=== PATIENT | male | born 1940 | race Caucasian/White ===

== ENCOUNTER 2019-05-20 14:42 | Outpatient (CLI) | payer MEDICARE, SELFPAY ==
--- NOTE | ~2019-05-20 | XR_ITS ---
XR hip LT min 2V 05/20/2019 15:06 Indication: Left hip pain Procedure: 2 views left hip Comparison: No prior studies for comparison. Findings: No fracture or traumatic malalignment. There is extensive atherosclerosis. Mild joint space narrowing, compatible with degenerative change. Impression: 1: Mild osteoarthritis of the left hip. Reviewed, dictated and finalized at location B. [employer] Impression: 1: Mild osteoarthritis of the left hip.
== END 2019-05-20 14:43 | disposition home or self-care (01) ==
LOC: ANHIMG 14:48
PROVIDERS: PCP Internal Medicine; Visit Provider Internal Medicine
DX: M25.552 Pain in left hip (principal); M16.12 Unilateral primary osteoarthritis, left hip
CPT/HCPCS: 73502